=== PATIENT | male | born 1950 | race Caucasian/White ===

== ENCOUNTER 2020-12-17 06:50 | Day surgery (SDC) | payer OTHER ==
[2020-12-17] MEDS: LIDOCAINE 4% TOP SOLUTION ONE ×2 (07:30→07:52)
[2020-12-17] MEDS ORDERED: Ringers Lactate 1,000 ML IV ONE (07:37)
[2020-12-17] MEDS ORDERED: Phenylephrine HCl 10 MG/ML 1 ML VIAL ONE (07:49)
[2020-12-17] MEDS ORDERED: GLYCOPYRROLATE 0.2 MG/ML SYR ONE (07:50)
[2020-12-17] MEDS ORDERED: LIDOCAINE 1% MPF 30 ML VIAL ONE ×2 (07:50→08:28)
[2020-12-17] MEDS ORDERED: FENTANYL CITR 100 MCG/2 ML ONE (08:24)
[2020-12-17] MEDS ORDERED: propofoL 200 MG/20 ML VIAL IV ONE ×2 (08:24→09:03)
[2020-12-17] MEDS ORDERED: LIDOCAINE VISCOUS 2% SOLN 15 ML UDC ONE (08:28)
--- NOTE | 2020-12-17 09:57 | RAD REPORT ---
EXAM DESCRIPTION: RAD - FLUORO-GUIDE FOR BRONCH UPT1HR - 12/17/2020 9:37 am CLINICAL HISTORY: Device placement/bronchoscope placement FINDINGS: Three fluoroscopic spot image is submitted. A bronchoscope has been placed into the left l marvin. Fluoroscopy 273 seconds. Examination performed by Dr. Winston
[2020-12-17 10:21] VITALS: BP 123/72; TEMP 97.6; O2SAT 98
--- NOTE | 2020-12-17 10:48 | RAD REPORT ---
EXAM DESCRIPTION: Ricki Single View12/17/2020 10:32 am CLINICAL HISTORY: Device placement bronchoscopy IMPRESSION: A pneumothorax is not present status post bronchoscopy.
--- NOTE | 2020-12-25 09:53 | P.OP ---
Date of Service: 12/17/20 (Bronchoscopy [facility] [place] BX and BAL) Findings and Operative Technique PT is 70 yrs of age AW [place] mass with hoarseness. After obtaining informed consent from pat. 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 Normal Carini ,Normal R side of the lung. Mass noted protruding from the [place]. Multiple Biospies performed. PT tolerated procedure well. No complications. Post Op CXRY No pneumothorax
== END 2020-12-17 10:57 | disposition home or self-care (01) ==
LOC: PRE 06:50
PROVIDERS: ATTEND Internal Medicine Sleep Medicine
PROC: 0BJ08ZZ Inspection of Tracheobronchial Tree, Via Natural or Artificial Opening Endoscopic (ICD-10-PCS; principal; 2020-12-17 08:00)
DX: C34.92 Malignant neoplasm of unspecified part of left bronchus or lung (principal); G47.33 Obstructive sleep apnea (adult) (pediatric); Z87.891 Personal history of nicotine dependence; Z20.822 Contact with and (suspected) exposure to COVID-19
CPT/HCPCS: 87070; 88108; 88305 ×2; 87015; 87206; 87116; 87102; 71045; 76000; 31622; U0002; J2704 ×2; J2370; J3010; J7120

== ENCOUNTER 2021-12-06 15:08 | Emergency (ER) | payer OTHER ==
--- OUTSIDE RECORDS SUMMARY | 2021-12-06 15:11 | XMS REPORT | Continuity of Care Document ---
:1950 Author Organization [facility] t Address [address] [place] [address] Care Team Providers Name Role Phone PHAN Attending Clinician Unavailable MD Olegario CHISHOLM Attending Clinician Unavailable PHAN Admitting Clinician Unavailable MD Olegario CHISHOLM Admitting Clinician Unavailable Problems This patient has no known problems. Allergies, Adverse Reactions, Alerts This patient has no known allergies or adverse reactions. Medications This patient has no known medications. Procedures This patient has no known procedures. Encounters Start End Encounter Admission Attending Care Care Encounter Source Date/Time Date/Time Type Type Clinicians Facility Department ID 2021-08-10 2021-08-12 Inpatient [facility] [id number] [place] 00:00:00 00:00:00 [facility] 2021-08-06 2021-08-06 Outpatient [facility] [id number] [place] 00:00:00 00:00:00 [facility] 2021-08-06 2021-08-06 Outpatient [facility] [id number] [place] 00:00:00 00:00:00 ED[facility] [address] 2021-08-06 2021-08-06 Outpatient [facility] [id number] [place] 00:00:00 00:00:00 [facility] [address] 2021-08-06 2021-08-06 Outpatient [facility] [id number] [place] 00:00:00 00:00:00 ED[facility] [address] 2021-06-15 2021-06-15 Outpatient [facility] [id number] [place] 00:00:00 00:00:00 ED[facility] [address] 2021-06-11 2021-06-11 Outpatient [facility] [id number] [place] 00:00:00 00:00:00 ED[facility] [address] 2021-06-11 2021-06-11 Outpatient CHISHOLM, [facility] [id number] [place] 00:00:00 00:00:00 EDWARD [address] 2021-06-04 2021-06-04 Outpatient CHISHOLM, [facility] [id number] [place] 00:00:00 00:00:00 EDWARD [address] 2021-06-04 2021-06-04 Outpatient CHISHOLM, [facility] [id number] [place] 00:00:00 00:00:00 EDWARD [address] 2021-06-04 2021-06-04 Outpatient CHISHOLM, [facility] [id number] [place] 00:00:00 00:00:00 EDWARD [address] 2021-06-04 2021-06-04 Outpatient CHISHOLM, [facility] [id number] [place] 00:00:00 00:00:00 ED[facility] [address] Results Test Description Test Time Test Comments Results Result Comments Source SARS-CoV-2 (COVID-19) RNA [Presence] in Respiratory sp ecimen by 2021-08-06 20:36:38 MARY with probe detection Test Item Value Reference Range Interpretation Comme nts SARS-CoV-2 (COVID-19) RNA [Presence] in Respiratory Not detected No t-Detected specimen by MARY with probe detection (test code = 35489-5) Whether patient is employed in a healthcare setting (test code = 89875-3) Whether the patient has symptoms related to condition of interest (test code = 03631-4) Patient was hospitalized because of this condition (test code = 56792-1) Whether the patient was admitted to intensive care unit (ICU) for condition of interest (test code = 65195-3) Whether patient resides in a congregate care setting (test code = 87604-8) SARS-CoV-2 (COVID-19) RNA [Presence] in Respiratory specimen by MARY with probe [id number] 14:53:40 Test Item Value Reference Range Interpretation Comments SARS-CoV-2 (COVID-19) RNA Not detected Not-Detected [Presence] in Respiratory specimen by MARY with probe detection (test code = 57709-7) Whether patient is employed in a healthcare setting (test code = 59558-2) Whether the patient has symptoms related to condition of interest (test code = 10792-3) Patient was hospitalized because of this condition (test code = 02150-9) Whether the patient was admitted to intensive care unit (ICU) for condition of interest (test code = 92298-3) Whether patient resides in a congregate care setting (test code = 19948-1)
[2021-12-06] MEDS ORDERED: NA CHLORIDE 0.9% 1,000 ML ONE (17:19)
[2021-12-06 18:02] LABS: Absolute Lymphocytes (CBC) 0.5 K/uL (0.7-4.9); Hematocrit 40.5 % (39.6-49.0); Lymphocytes % 10.5 % (15.3-44.8); MPV 7.7 fL (7.6-11.3)
--- NOTE | 2021-12-06 18:03 | RAD REPORT ---
EXAM DESCRIPTION: Ricki Single View12/06/2021 5:53 pm CLINICAL HISTORY: Congestion COMPARISON: September 2021 FINDINGS: Left upper lobe opacity measures 8 centimeters. Left atelectasis is present Right lung appears clear. Heart is normal size IMPRESSION: Left lung opacity likely a combination of neoplasm and posterior did pneumonia Left atelectasis
[2021-12-06 18:05] LABS: Protime INR 1.01
[2021-12-06 18:16] LABS: Albumin 3.6 g/dL (3.4-5.0); Amylase 60 U/L (25-115); BUN Blood Urea Nitrogen 10 mg/dL (7-18); Bicarbonate 28 mmol/L (21-32); Bilirubin Direct 0.1 mg/dL (0-0.2); Bilirubin Total 0.4 mg/dL (0.2-1.0); Glucose Level 116 mg/dL (74-106); Lipase 93 U/L (73-393); Protein, Total 7.2 g/dL (6.4-8.2); Sodium Level 137 mmol/L (136-145)
[2021-12-06 18:17] LABS: Urine Blood Negative (Negative); Urine Glucose Negative (Negative); Urine Protein Negative (Negative); Urine pH 5.5 (5.0-7.0)
--- NOTE | 2021-12-06 18:19 | ER ---
Nurse's Notes [facility] Name: Jason Burch Age: 71 yrs Sex: Male : 1950 Arrival Date: 12/06/2021 Time: 15:09 Bed 5 Private MD: Teddy Araujo T Diagnosis: Other pneumonia, unspecified organism Presentation: 12/06 15:29 Chief complaint: Patient states: Home blood pressure was 99/67, 70/48. Coronavirus ww screen: Vaccine status: Patient reports being unvaccinated. Client denies travel out of the [place] in the last 14 days. Ebola Screen: Patient negative for fever greater than or equal to 101.5 degrees Fahrenheit, and additional compatible Ebola Virus Disease symptoms Patient denies exposure to infectious person. Patient denies travel to an Ebola-affected area in the 21 days before illness onset. Initial Sepsis Screen: Does the patient meet any 2 criteria? No. Patient's initial sepsis screen is negative. Does the patient have a suspected source of infection? No. Patient's initial sepsis screen is negative. Risk Assessment: Do you want to hurt yourself or someone else? Patient reports no desire to harm self or others. Onset of symptoms was December 06, 2021. 15:29 Method Of Arrival: Wheelchair ww 15:29 Acuity: SOL 4 ww Triage Assessment: 15:30 General: Appears in no apparent distress. Behavior is calm, cooperative, appropriate ww for age. Pain: Denies pain. EENT: No deficits noted. No signs and/or symptoms were reported regarding the EENT system. Neuro: No deficits noted. Level of Consciousness is awake, alert, obeys commands, Oriented to person, place, time, situation. Cardiovascular: No deficits noted. Reports since hypotension. Respiratory: No deficits noted. Airway is patent Respiratory effort is even, unlabored, Respiratory pattern is regular, symmetrical. GI: No deficits noted. No signs and/or symptoms were reported involving the gastrointestinal system. : No deficits noted. No signs and/or symptoms were reported regarding the genitourinary system. Derm: No deficits noted. No signs and/or symptoms reported regarding the dermatologic system. Skin is intact. Musculoskeletal: No deficits noted. No signs and/or symptoms reported regarding the musculoskeletal system. Historical: - Allergies: 15:30 No Known Allergies; ww - PMHx: 15:30 Hypertensive disorder; small cell lung cancer; ww - Immunization history:: Client reports having NOT received the Covid vaccine. - Social history:: Smoking status: Patient/guardian denies using tobacco, Patient/guardian denies using alcohol, street drugs, The patient lives with family. - Family history:: not pertinent. Screenin:39 Abuse screen: Denies threats or abuse. Nutritional screening: No deficits noted. tw2 Tuberculosis screening: No symptoms or risk factors identified. Fall Risk Secondary diagnosis (15 points) impaired mobility. Assessment: 17:59 General: Appears Behavior is calm, cooperative. Pain: Denies pain. Cardiovascular: haddad Reports low blood preassure. Vital Signs: 15:29 BP 91 / 61; Pulse 95; Resp 18; Temp 97.3; Pulse Ox 97% on R/A; Weight 81.19 kg; Height ww 5 ft. 10 in. (177.80 cm); 17:59 BP 140 / 86; Pulse 71; Resp 18; Pulse Ox 99% on R/A; haddad 15:29 Body Mass Index 25.68 (81.19 kg, 177.80 cm) ww ED Course: 15:09 Patient arrived in ED. am2 15:10 Teddy Araujo MD is Private Physician. am2 15:30 Triage completed. ww 15:30 Arm band placed on left wrist. ww 16:04 Nadira Mccormick MD is Attending Physician. ma2 17:53 Chest Single View XRAY In Process Unspecified. EDMS 17:59 Patient has correct armband on for positive identification. Bed in low position. haddad 17:59 EKG done, by ED staff, reviewed by Nadira Mccormick MD. 3 17:59 No provider procedures requiring assistance completed. haddad 17:59 Inserted saline lock: 20 gauge in right antecubital area, using aseptic technique. haddad 18:51 IV discontinued, intact, Pressure dressing applied. haddad Administered Medications: 17:40 Drug: NS 0.9% 1000 ml Route: IV; Rate: 1 bolus; Site: right antecubital; ss 18:34 Drug: AZITHromycin 500 mg Route: PO; haddad 18:34 Follow up: Response: No adverse reaction haddad Outcome: 18:19 Discharge ordered by . ma2 18:51 Discharged to home haddad 18:51 Condition: good 18:51 Discharge instructions given to patient, Prescriptions given X 1. 18:51 Patient left the ED. haddad Signatures: Dispatcher [employer] EDMS Terri Ngo, RN KUNAL Brooklyn Quach RN RN [facility] iWlma hTomas am Kellie Ren [facility] Nadira Mccormick MD MD va2 Sarahi Michaud RN RN Vania Martino RN RN ha
--- NOTE | 2021-12-06 18:20 | EDPHYS ---
Physician Documentation [facility] Name: Jason Burch Age: 71 yrs Sex: Male : 1950 Arrival Date: 12/06/2021 Time: 15:09 Bed 5 Private MD: Teddy Araujo T ED Physician Nadira Mccormick HPI: 12/06 16:58 This 71 yrs old Unknown Male presents to ER via Wheelchair with complaints of Blood ma2 Pressure Problem - 70/48 \\T\\ home. 16:58 Onset: The symptoms/episode began/occurred gradually, 1 day(s) ago. Associated signs ma2 and symptoms: Pertinent negatives: diaphoresis, fever, loss of consciousness, numbness in extremities, visual changes. Severity of symptoms: At their worst the symptoms were in the emergency department the symptoms. Patient has small cell lung cancer, completed chemotherapy and radiation therapy 3 months ago, no chemotherapy at this time. He is here because he had reading of low blood pressure at home of 70/48, he checked his blood pressure every morning, patient also take blood pressure medicine which he took this morning as well before he checked his blood pressure. Patient said that there is no symptoms at this time or this morning, he denies cough shortness of breath fever or any new symptoms. Patient thinks blood pressure is because he has not been eating or drinking water over the last 2 weeks,. Historical: - Allergies: 15:30 No Known Allergies; ww - PMHx: 15:30 Hypertensive disorder; small cell lung cancer; ww - Immunization history:: Client reports having NOT received the Covid vaccine. - Social history:: Smoking status: Patient/guardian denies using tobacco, Patient/guardian denies using alcohol, street drugs, The patient lives with family. - Family history:: not pertinent. ROS: 16:58 Constitutional: Negative for fever, chills, and weight loss. ma2 16:58 All other systems are negative. Exam: 16:58 Constitutional: This is a well developed, well nourished patient who is awake, alert, ma2 and in no acute distress. Head/Face: Normocephalic, atraumatic. Eyes: Pupils equal round and reactive to light, extra-ocular motions intact. Lids and lashes normal. Conjunctiva and sclera are non-icteric and not injected. Cornea within normal limits. Periorbital areas with no swelling, redness, or edema. ENT: Nares patent. No nasal discharge, no septal abnormalities noted. Tympanic membranes are normal and external auditory canals are clear. Oropharynx with no redness, swelling, or masses, exudates, or evidence of obstruction, uvula midline. Mucous membranes moist. Neck: Trachea midline, no thyromegaly or masses palpated, and no cervical lymphadenopathy. Supple, full range of motion without nuchal rigidity, or vertebral point tenderness. No Meningismus. Chest/axilla: Normal chest wall appearance and motion. Nontender with no deformity. No lesions are appreciated. Cardiovascular: Regular rate and rhythm with a normal S1 and S2. No gallops, murmurs, or rubs. Normal PMI, no JVD. No pulse deficits. Respiratory: Lungs have equal breath sounds bilaterally, clear to auscultation and percussion. No rales, rhonchi or wheezes noted. No increased work of breathing, no retractions or nasal flaring. Abdomen/GI: Soft, non-tender, with normal bowel sounds. No distension or tympany. No guarding or rebound. No evidence of tenderness throughout. Skin: Warm, dry with normal turgor. Normal color with no rashes, no lesions, and no evidence of cellulitis. MS/ Extremity: Pulses equal, no cyanosis. Neurovascular intact. Full, normal range of motion. Neuro: Awake and alert, GCS 15, oriented to person, place, time, and situation. Cranial nerves II-XII grossly intact. Motor strength 5/5 in all extremities. Sensory grossly intact. Cerebellar exam normal. Normal gait. Vital Signs: 15:29 BP 91 / 61; Pulse 95; Resp 18; Temp 97.3; Pulse Ox 97% on R/A; Weight 81.19 kg; Height ww 5 ft. 10 in. (177.80 cm); 17:59 BP 140 / 86; Pulse 71; Resp 18; Pulse Ox 99% on R/A; haddad 15:29 Body Mass Index 25.68 (81.19 kg, 177.80 cm) ww MDM: 16:04 Patient medically screened. ma2 16:58 Differential diagnosis: Anemia asthma, Bronchitis pneumonia, reactive airway disease. ma2 18:18 Data reviewed: vital signs, nurses notes, EMS record, alf records. Counseling: [email or web address] I had a detailed discussion with the patient and/or guardian regarding: the historical points, exam findings, and any diagnostic results supporting the discharge/admit diagnosis, the presence of at least one elevated blood pressure reading (>120/80) during this emergency department visit, the need for outpatient follow up. 12/06 16:50 Order name: Amylase, Serum; Complete Time: 18:26 12/06 16:50 Order name: Basic Metabolic Panel; Complete Time: 18:26 12/06 16:50 Order name: Blood Culture Adult (2) 12/06 16:50 Order name: CBC with Diff; Complete Time: 18:17 12/06 16:50 Order name: CPK; Complete Time: 18:26 12/06 16:50 Order name: Ckmb; Complete Time: 18:26 12/06 16:50 Order name: LFT's; Complete Time: 18:26 12/06 16:50 Order name: Lactate; Complete Time: 18:26 12/06 16:50 Order name: Lipase; Complete Time: 18:26 12/06 16:50 Order name: Procalcitonin 12/06 16:50 Order name: Protime (+inr); Complete Time: 18:17 12/06 16:50 Order name: Ptt, Activated; Complete Time: 18:17 12/06 16:50 Order name: Troponin (emerg Dept Use Only); Complete Time: 18:26 12/06 16:50 Order name: Urine Microscopic Only 12/06 16:50 Order name: Chest Single View XRAY; Complete Time: 18:17 12/06 16:50 Order name: Cardiac monitoring; Complete Time: 17:59 12/06 16:50 Order name: EKG - Nurse/Tech; Complete Time: 17:59 12/06 16:50 Order name: IV Saline Lock - Large Bore; Complete Time: 17:40 12/06 16:50 Order name: Labs collected and sent; Complete Time: 17:59 12/06 16:50 Order name: O2 Per Protocol; Complete Time: 17:40 12/06 16:50 Order name: O2 Sat Monitoring; Complete Time: 18:00 /09 16:50 Order name: Urine Dipstick-Ancillary (obtain specimen); Complete Time: 18:00 il2 12/06 16:50 Order name: SARS-COV-2 RT PCR (Document "Date of Onset" if Symptomatic) il2 12/06 18:16 Order name: Urine Dipstick-Ancillary EDMS 12/06 18:45 Order name: Urine Culture EDMS Administered Medications: 17:40 Drug: NS 0.9% 1000 ml Route: IV; Rate: 1 bolus; Site: right antecubital; 18:34 Drug: AZITHromycin 500 mg Route: PO; haddad 18:34 Follow up: Response: No adverse reaction haddad Disposition Summary: 12/06/21 18:19 Discharge Ordered Location: Home ma2 Condition: Stable ma2 Diagnosis - Other pneumonia, unspecified organism ma2 Followup: ma2 - With: Private Physician - When: Tomorrow - Reason: Continuance of care Discharge Instructions: - Discharge Summary Sheet il2 - Community-Acquired Pneumonia, Adult [facility] Forms: - Medication Reconciliation Form il2 - Thank You Letter ma2 - Antibiotic Education ma2 - Prescription Opioid Use il2 Prescriptions: - Zithromax Z-Robbie 250 mg Oral Tablet - take 1 tablet by ORAL route as directed for 5 days Day 1 - take two (2) tablets ma2 one time. Day 2, 3, 4 , 5 take one (1) tablet once daily.; 6 tablet; Refills: 0, Product Selection Permitted Signatures: Dispatcher [employer] EDVA Terri Ngo RN RN Nadira Mccormick MD MD [facility] Sarahi Michaud RN RN Vania Martino RN RN haddad Corrections: (The following items were deleted from the chart) 18:02 16:50 Accucheck ordered. [facility]
[2021-12-06 18:23] LABS: ALT/SGPT 29 U/L (12-78); Alkaline Phosphatase 76 U/L (45-117); CKMB Creatine Kinase MB 1.1 ng/mL (1.0-3.6); Creatine Phosphokinase 83 U/L (39-308); Troponin (Emerg Dept Use Only) < 0.02 ng/mL (0.0-0.045)
[2021-12-06 18:25] LABS: AST/SGOT 31 U/L (15-37); Potassium 4.1 mmol/L (3.5-5.1)
[2021-12-06] MEDS ORDERED: AZITHROMYCIN 250 MG TAB ONE (18:34)
[2021-12-06 18:43] LABS: Urine Bacteria 20-50 /HPF (NONE SEEN); Urine Mucus 1+ /HPF (NONE SEEN); Urine RBC <5 /HPF (NONE SEEN)
[2021-12-06 18:56] VITALS: TEMP 97.3
[2021-12-06 18:58] VITALS: BP 140/86; O2SAT 99
== END 2021-12-06 18:51 | disposition home or self-care (01) ==
LOC: ER 15:08
DX: J18.8 Other pneumonia, unspecified organism (principal); Z20.822 Contact with and (suspected) exposure to COVID-19; I10 Essential (primary) hypertension; C34.90 Malignant neoplasm of unspecified part of unspecified bronchus or lung
CPT/HCPCS: 93005; 87040 ×2; 87088; 85025; 87086; 80048; 36415; 82150; 82550; 85610; 80076; 83605; 85730; 84484; 82553; 83690; 84145; 71045; 99284; U0003; J7030; 81003; 81015

== ENCOUNTER 2022-03-03 08:01 | Day surgery (SDC) | payer OTHER ==
[2022-03-03 08:45] LABS: Absolute Lymphocytes (CBC) 0.5 K/uL (0.7-4.9); Hematocrit 38.4 % (39.6-49.0); Lymphocytes % 13.3 % (15.3-44.8); MPV 8.3 fL (7.6-11.3); RBC Red Blood Cell Count 3.85 M/uL (4.33-5.43)
[2022-03-03] MEDS ORDERED: MIDAZOLAM HCL 2 MG/2 ML INJ ONE (08:51)
[2022-03-03] MEDS ORDERED: NALOXONE 0.4 MG/ML VIAL ONE (08:51)
[2022-03-03] MEDS ORDERED: FENTANYL CITR 100 MCG/2 ML ONE (08:52)
[2022-03-03] MEDS ORDERED: Ringers Lactate 1,000 ML IV ONE (08:52)
[2022-03-03] MEDS ORDERED: FLUMAZENIL 0.1 MG/ML (5 mL VIAL) IV ONE (09:01)
[2022-03-03] MEDS ORDERED: NA CHLORIDE 0.9% 1,000 ML ONE (09:09)
[2022-03-03 09:50] LABS: Anisocytosis SLIGHT; Blood Morphology Comment NOTED (NOT SEEN); Hypochromasia 1+; Platelet Estimate DECR; Platelets, Giant PRESENT
--- NOTE | 2022-03-03 11:38 | RAD REPORT ---
EXAM DESCRIPTION: CT - Bone Biopsy Deep - 03/03/2022 10:55 am CLINICAL HISTORY: right shoulder mass COMPARISON: No comparisons FINDINGS: Preoperative diagnosis: Right proximal humerus lesion Post operative diagnosis: Same Conscious Sedation: 2 milligrams of Versed, 5- mcg Fentanyl. 30 minutes of [id number] time. Patient was continuously monitored by nursing staff. Contrast used: NONE Estimated blood loss: less than 5 mL Image Guidance: CT-guided Specimens: 2 x 13 gauge core samples of the hypermetabolic process in the right humeral head were obt ained. Samples were given to pathology for analysis. The patient tolerated the procedure without immediate c omplication and transferred to the recovery room in stable condition. IMPRESSION: 1. Technically successful CT-guided core biopsy of the hypermetabolic process in the rig ht proximal humerus. 2.Conscious sedation was utilized. 3. No immediate complications. All CT scans are performed using dose optimization technique as appropriate and may include automated exposure control or mA/KV adjustment according to patient size.
[2022-03-03 11:40] VITALS: BMI 24.3
[2022-03-03 11:49] VITALS: BP 140/96; TEMP 97.5; O2SAT 100
== END 2022-03-03 11:30 | disposition home or self-care (01) ==
LOC: DS 08:01
PROVIDERS: ATTEND Internal Medicine Medical Oncology
DX: C79.51 Secondary malignant neoplasm of bone (principal); C77.1 Secondary and unspecified malignant neoplasm of intrathoracic lymph nodes; D69.6 Thrombocytopenia, unspecified; D64.9 Anemia, unspecified; D72.819 Decreased white blood cell count, unspecified
CPT/HCPCS: 85025; 36415; 88305; 20225; J2250; J3010; J7120; J7030; J2310

== ENCOUNTER 2022-08-09 10:38 | Emergency (ER) | payer OTHER ==
--- OUTSIDE RECORDS SUMMARY | 2022-08-09 10:46 | XMS REPORT | Continuity of Care Document ---
:1950 Author Organization [facility] t Address [address] [place] [address] Care Team Providers Name Role Phone Teddy Araujo Larry Primary Care Physician Fellow, Pulmonary Attending Clinician Unavailable Daniel Rodriguez MD Attending Clinician Provider Charla CASANOVA Attending Clinician Rolly Stephens MDHMaty Attending Clinician Willow Malloy RN Attending Clinician Unavailable Ange Livingston MD Attending Clinician Mattie Hutchison CRNA Attending Clinician MD ROLLY STEPHENSH. 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 Added automatic ally from request for surgery [id number] Abnormal Abnormal Disease Active Overview: De thmanjit PET of PET of 06-[address] left lung left lung 00:00: g of this H ospita 00 note l might be different from the original. Added automatic ally from request for surgery [id number] No known No known Disease Unive rs active active ity of problems problems [facility] Allergies, Adverse Reactions, Alerts This patient has no known allergies or adverse reactions. Social History Social Habit Start Date Stop Date Quantity Comments Source History of tobacco Cigarette Smoker University of use [facility] Tobacco use and 2022-07-22 2022-07-22 Smokeless Universit y of exposure 00:00:00 00:00:00 tobacco non-user [facility] Alcohol intake 2021-08-12 2021-08-12 Current drinker [facility] 00:00:00 00:00:00 of alcohol [facility] (finding) Cigarettes smoked 2021-06-04 2021-06-[address] current (pack per 00:00:00 00:00:00 [facility] l day) - Reported Cigarette 2021-06-04 2021-06-04 [facility] pack-years 00:00:00 00:00:00 Hospital Sex Assigned At [birth year] [facility] 00:00:00 00:00:00 Hospital Smoking Status Start Date Stop Date Source Ex-smoker 2022-07-22 00:00:00 2022-07-22 00:00:00 [facility] Medications Ordered Filled Start Stop Current Ordering Indication Dosage Frequency Signature Comments Components Source Medication Medication Date Date Medication? Clinician (SIG) Name Name vitamin C Yes 1000mg Take 1,000 Univers with ibeth 8-25 mg by ity of hips 1,000 13:21: mouth. [place] mg tablet [address] [place] [address] VITAMIN E Yes 180mg Take 180 Uni vers ACETATE 8-25 mg by ity of ORAL 13:21: mouth. [address] POTASSIUM Yes Take by Unive rs CITRATE 8-25 mouth. ity of ORAL 13:21: [address] sucralfate Yes 1g Take 1 g Uni vers 1 gram 8-25 by mouth. ity of tablet 13:21: [address] XARELTO 20 Yes 20mg Take 20 mg U nivers mg tablet 8-18 by mouth ity of 00:00: every [place] [address] morning. [facility] carvediloL Yes 12.5mg Take 12.5 Univers 12.5 mg 6-15 mg by ity of tablet 00:00: mouth in [place] 00 the Medical morning Branch and 12.5 mg in the evening. gabapentin Yes 600mg Take 600 Un sd 600 mg 6-15 mg by ity of tablet 00:00: mouth in [place] 00 the Medical morning Branch and 600 mg in the evening. HYDROcodone Yes 1{tbl} Take 1 Un sd -acetaminop 6-09 tablet by ity of hen 5-325 00:00: mouth [place] mg tablet 00 every 8 Medical (eight) Branch hours as needed. carvediloL Yes 12.5mg Q.5D Take 12.5 Methodi (COREG) 9-[address] 12.5 MG 11:51: mouth 2 Hospita tablet 50 (two) l times a day with meals. valsartan Yes 80mg QD Take 80 mg Me thodi (DIOVAN) 80 9-[address] MG tablet 11:51: daily. Hospit a 50 l POTASSIUM 0 Yes QD Take by Metho di CITRATE 9-[address] ORAL 11:51: daily. Hospita 50 l ascorbic 0 Yes 1000mg QD Take 1,000 M ethodi acid, 9-[address] vitamin C, 11:51: mouth Hospit a (vitamin C) 50 daily. l 1000 MG tablet vitamin E Yes 180mg QD Take 180 Met hodi acetate 9-[address] (VITAMIN E 11:51: mouth Hospit a ORAL) 50 daily. l sucralfate Yes 1g Q.25D Take 1 g Me thodi (CARAFATE) 9-[address] 1 gram 11:51: (four) Hospita tablet 50 times a l day. Vital Signs Vital Name Observation Time Observation Value Comments Source Systolic blood 2022-07-22 18:22:00 118 mm[Hg] [facility] Diastolic blood 2022-07-22 18:22:00 79 mm[Hg] Unive [facility] Heart rate 2022-07-22 18:22:00 96 /min [facility] Body temperature 2022-07-22 18:22:00 36.89 [facility] Respiratory rate 2022-07-22 18:22:00 18 /min [facility] Body height 2022-07-22 18:22:00 177.8 cm [facility] Body weight 2022-07-22 18:22:00 73.483 kg [facility] BMI 2022-07-22 18:22:00 23.24 kg/m2 [facility] Oxygen saturation in 2022-07-22 18:22:00 95 /min [facility] Arterial blood by [facility] Pulse oximetry Branch Systolic blood 2021-08-12 12:28:57 131 mm[Hg] [facility] pressure Diastolic blood 2021-08-12 12:28:57 84 mm[Hg] [facility] pressure Body temperature 2021-08-12 12:28:57 37.17 [place] [facility] Oxygen saturation in 2021-08-12 12:28:57 97 /min [facility] Arterial blood by Pulse oximetry Heart rate 2021-08-12 09:07:30 84 /min [facility] Respiratory rate 2021-08-12 09:07:30 20 /min [facility] Body weight 2021-08-12 09:07:30 79.652 kg [facility] BMI 2021-08-12 09:07:30 25.20 kg/m2 [facility] Body height 2021-08-11 01:21:57 177.8 cm [facility] Procedures Procedure Date / Time Performing Clinician Source Performed PET CT SKULL BASE TO MID 2021-10-15 00:00:00 Yazmin Hurt [facility] THIGH XR CHEST 1 VW PORTABLE 2021-08-12 13:40:00 Alvina Head [facility] XR CHEST 1 VW PORTABLE 2021-08-12 11:14:00 Sarmad Lawton [facility] Owusstephanie COVID-19 ANTI-SPIKE IGG 2021-08-12 09:48:00 Teddy Lopez [facility] ANTIBODY TITER Josh COVID-19 SEROLOGY PATIENT 2021-08-12 09:48:00 Teddy Lopez [facility] SURVEILLANCE Josh XR CHEST 1 VW PORTABLE 2021-08-11 18:15:00 Yaa Sanchez [facility] XR CHEST 1 VW PORTABLE 2021-08-11 11:24:00 [facility] XR CHEST 1 VW PORTABLE 2021-08-11 00:37:58 [facility] OR TUBE THORACOSTOMY 2021-08-10 23:56:01 [facility] INCLUDES WATER SEAL [facility] XR CHEST 1 VW PORTABLE 2021-08-10 21:58:52 [facility] SURGICAL PATHOLOGY REQUEST 2021-08-10 19:48:00 Rolly Stephens [facility] XR CHEST 1 VW PORTABLE 2021-08-10 19:32:00 [facility] OR AN ELECTIVE 2021-08-10 17:39:42 Roseann Orozco [facility] ospital ENDOTRACHEAL AIRWAY CYTOLOGY 2021-08-10 17:35:00 Rolly Stephens [facility] (NON-GYNECOLOGICAL) REQUEST BRONCHOSCOPY, USING 2021-08-10 17:17:00 Rolly Stephens [facility] ELECTROMAGNETIC NAVIGATION ECG 12-LEAD 2021-08-10 15:42:08 Rolly Stephens [facility] Plan of Care Planned Activity Planned Date Details Comments Source Future Scheduled 2022-08-08 HEPATITIS B VACCINES Met [facility] Test 11:02:03 (1 of 3 - 3-dose series) [code = HEPATITIS B VACCINES (1 of 3 - 3-dose series)] Future Scheduled 2022-08-08 COVID-19 VACCINE (#1) [facility] Test 11:02:03 [code = COVID-19 VACCINE (#1)] Future Scheduled 2022-08-08 65+ PNEUMOCOCCAL [facility] Test 11:02:03 VACCINE (1 - PCV) [code = 65+ PNEUMOCOCCAL VACCINE (1 - PCV)] Future Scheduled 2022-08-08 Hepatitis C screening [facility] Test 11:02:03 (procedure) [code = 510677746] Future Scheduled 2022-08-08 COLONOSCOPY SCREENING [facility] Test 11:02:03 [code = COLONOSCOPY SCREENING] Future Scheduled 2022-08-08 SHINGLES VACCINES (1 Met [facility] [place] [facility] Test 11:02:03 of 2) [code = SHINGLES VACCINES (1 of 2)] Future Scheduled 2022-08-08 INFLUENZA VACCINE [facility] Test 11:02:03 [code = INFLUENZA VACCINE] Encounters Start End Encounter Admission Attending Care Care Encounter Source Date/Time Date/Time Type Type Clinicians Facility Department ID 2022-07-22 2022-07-22 Office Fellow, Pulmonary UNIVERSIT 1.2.[id number] [facility] 14:00:00 15:00:00 Visit JenniferDaniel [facility] 350.1.13.10 ity [facility] [place] 4[place] [id number] [facility] 084 Branch 2021-11-02 2021-11-02 Orders Provider, 1.2.840.1 [id number] Methodi 00:00:00 00:00:00 Only Historical 02227.1.1 842 s t 3.430.2.7 Hospit a .3.049758 l .8 2021-08-10 2021-08-12 [facility], 1.2.840.1 [id number] Methodi 09:46:00 11:51:00 Encounter Rolly Melvin 00175.1.[address] 3.430.2.7 Hospit a .3.131194 l .8 2021-08-10 2021-08-12 [facility] [id number] [place] [address] 00:00:00 00:00:[address] 2021-08-11 2021-08-11 Orders Malloy, 1.2.840.1 [id number] Methodi 00:00:00 00:00:00 Only [place]ow [address]87.1.[address] 3.430.2.7 Hospit a .3.023423 l .8 2021-08-10 2021-08-10 [facility], 1.2.840.1 [id number] Methodi 12:25:00 14:45:00 [address] [facility] [address] 3.430.2.7 Hospit a .3.346049 l .8 2021-08-10 2021-08-10 Anesthesia Ange Livingston 1.2.840.1 [id number] Methodi 12:17:00 14:02:00 Event Mattie Hutchison 02048.1.[address] 3.430.2.7 Hospit a .3.563089 l .8 2021-08-10 2021-08-10 Travel 1.2.840.1 1.2.174.344 [id number] Methodi 00:00:00 00:00:[address] 3.430.2.7 0.2.7.3.698 Ho spita .3.934644 084.8 l .8 2021-08-06 2021-08-06 Outpatient [facility], [facility] [id number] [place] 00:00:00 00:00:00 EDWARD 957 Method i 2021-08-06 2021-08-06 Outpatient STEPHENS, [facility] [id number] [place] 00:00:00 00:00:00 EDWARD 246 Method i 2021-08-06 2021-08-06 Outpatient [facility], [facility] [id number] [place] 00:00:00 00:00:00 EDWARD 659 Method i 2021-08-06 2021-08-06 Outpatient [facility], [facility] [id number] [place] 00:00:00 00:00:00 EDWARD 221 Method i 2021-06-15 2021-06-15 Outpatient [facility] 895 [id number] [place] 00:00:00 00:00:00 EDWARD 137 Method i 2021-06-11 2021-06-11 Outpatient [facility], [facility] [id number] [place] 00:00:00 00:00:00 EDJERRY 613 Method i 2021-06-11 2021-06-11 Outpatient [facility], [facility] [id number] [place] 00:00:00 00:00:00 EDJERRY 418 Method i 2021-06-04 2021-06-04 Outpatient STEPHENS, [facility] [id number] [place] 00:00:00 00:00:00 EDWARD [address] 2021-06-04 2021-06-04 Outpatient [facility], [facility] [id number] [place] 00:00:00 00:00:00 EDWARD [address] 2021-06-04 2021-06-04 Outpatient STE[facility]ENS, [facility] [id number] [place] 00:00:00 00:00:00 EDWARD [address] 2021-06-04 2021-06-04 Outpatient STEPHENS, [facility] [id number] 011 [place] 00:00:00 00:00:00 EDWARD [address] Results Test Description Test Time Test Comments Results Result Comments Source Surgical pathology request 2021-08-13 19:44:14 Test Item Value Reference Range Interpretation Comme nts Case number (test code = [id number]) [id number] Surgical pathology report (test code = See link below for PDF Lab R eport 2255) Result status (test code = 5839382) This is Final Report for [id number] [facility] [id number] 16:00:08 Test Item Value Reference Range Interpretation Comments Case number (test code = [id number]) Cytology See link below for (non-gynecological) PDF Lab Report report (test code = 1178) Result status (test code This is Final Report = [id number]) for [id number] [facility] 12 [id number] 16:01:59 Test Item Value Reference Range Interpretation Comments Ventricular rate (test code = 253) Atrial rate (test code = 255) OR interval (test code = 266) QRSD interval (test code = 260) QT interval (test code = 264) QTC interval (test code = 265) P axis 1 (test code = 267) QRS axis 1 (test code = 268) T wave axis (test code = 270) EKG impression (test Normal sinus code = 273) rhythm-Nonspecific T wave abnormality-Abnormal ECG-No previous ECGs available-Electronica lly Signed By Brandon Martinez MD ([id number]) on 08/10/2021 11:01:56 AM [facility]-CoV-2 (COVID-19) RNA [Presence] in Respiratory specimen by MARY with probe [id number] 20:36:38 Test Item Value Reference Range Interpretation Comments SARS-CoV-2 (COVID-19) RNA Not detected Not-Detected [Presence] in Respiratory specimen by MARY with probe detection (test code = 94087-2) Whether patient is employed in a healthcare setting (test code = 44250-1) Whether the patient has symptoms related to condition of interest (test code = 61196-4) Patient was hospitalized because of this condition (test code = 37521-6) Whether the patient was admitted to intensive care unit (ICU) for condition of interest (test code = 59831-9) Whether patient resides in a congregate care setting (test code = 32241-7) SARS-CoV-2 (COVID-19) RNA [Presence] in Respiratory specimen by MARY with probe [id number] 14:53:40 Test Item Value Reference Range Interpretation Comments SARS-CoV-2 (COVID-19) RNA Not detected Not-Detected [Presence] in Respiratory specimen by MARY with probe detection (test code = 61439-5) Whether patient is employed in a healthcare setting (test code = 11881-5) Whether the patient has symptoms related to condition of interest (test code = 63232-9) Patient was hospitalized because of this condition (test code = 43940-4) Whether the patient was admitted to intensive care unit (ICU) for condition of interest (test code = 80487-8) Whether patient resides in a congregate care setting (test code = 30936-8)
[2022-08-09] MEDS ORDERED: TETANUS & DIPHTHERIA TOX,ADULT 0.5 ML VIAL ONE (11:12)
[2022-08-09] MEDS ORDERED: LIDOCAINE 1% MPF 5 ML VIAL ONE ×2 (11:12→13:17)
[2022-08-09] MEDS ORDERED: MUPIROCIN 2% OINT 22GM TUBE TOP ONE (11:19)
[2022-08-09] MEDS ORDERED: ACETAMINOPHEN 500 MG TAB ONE (11:57)
--- NOTE | 2022-08-09 12:30 | RAD REPORT ---
EXAM DESCRIPTION: CT - CTHCSPWOC - 08/09/2022 11:34 am CLINICAL HISTORY: Trauma, head and neck injury. fall COMPARISON: Ct Skull/Thigh dated 01/28/2022 TECHNIQUE: Axial 5 mm thick images of the head were obtained. Axial 2 mm thick images of the cervical spine were obtained with sagittal and coronal reconstruction images generated and reviewed. All CT scans are performed using dose optimization technique as appropriate and may include automated exposure control or mA/KV adjustment according to patient size. FINDINGS: CT HEAD WITHOUT CONTRAST: No acute hemorrhage, hydrocephalus or extra-axial collection is identified.Mild generalized brain atr ophy is present with moderate periventricular and deep white matter chronic microvascular ischemic ch anges.No areas of brain edema or midline shift. Mild high density fluid is seen in both maxillary antra which may be related mucoid material or blood product.The calvarium is intact. CT CERVICAL SPINE WITHOUT CONTRAST: No fracture or subluxation.Moderate multilevel cervical degenerative changes are present.No preverteb ral soft tissues swelling is identified. IMPRESSION: No acute intracranial or cervical spine findings. Moderate multilevel cervical degenerative changes.
--- NOTE | 2022-08-09 13:43 | ER ---
Nurse's Notes [facility] Name: Jason Burch Age: 71 yrs Sex: Male : 1950 Arrival Date: 08/09/2022 Time: 10:43 Bed 4 Private MD: Diagnosis: Fall on same level, unspecified;Laceration without foreign body of other part of head-left brow, left cheek Presentation: 08/09 11:03 Chief complaint: Patient states: fell while leaving the cancer center, laceration to iw left side of forehead , denies LOC, has been falling more often and is currently on chemo. 11:03 Acuity: SOL 3 iw 11:03 Method Of Arrival: Wheelchair iw 11:03 Care prior to arrival: None. j9 11:03 Mechanism of Injury: Fall from standing position. Trauma event details: Injury jg9 occurred: at home. 11:03 Coronavirus screen: Vaccine status: Patient reports being unvaccinated. Ebola Screen: j9 Patient negative for fever greater than or equal to 101.5 degrees Fahrenheit, and additional compatible Ebola Virus Disease symptoms Patient denies exposure to infectious person. Patient denies travel to an Ebola-affected area in the 21 days before illness onset. Initial Sepsis Screen: Does the patient meet any 2 criteria? No. Patient's initial sepsis screen is negative. Does the patient have a suspected source of infection? No. Patient's initial sepsis screen is negative. Risk Assessment: Do you want to hurt yourself or someone else? Patient reports no desire to harm self or others. 11:03 Onset of symptoms was August 09, 2022. jg9 Triage Assessment: 11:05 General: Appears in no apparent distress. Behavior is calm, cooperative. Pain: jg9 Complains of pain in forehead. Trauma Activation: Not Applicable Physician: ED Physician; Name: ; Notified At: ; Arrived At: Physician: General Surgeon; Name: ; Notified At: ; Arrived At: Physician: Radiology; Name: ; Notified At: ; Arrived At: Physician: Respiratory; Name: ; Notified At: ; Arrived At: Physician: Lab; Name: ; Notified At: ; Arrived At: Historical: - Allergies: 12:01 No Known Allergies; jg9 - PMHx: 12:01 Hypertensive disorder; small cell lung cancer; jg9 - Immunization history: Last tetanus immunization: unknown. - Social history:: Smoking status: Patient/guardian denies using tobacco, the patient reports quitting approximately 11 years ago. - Family history:: not pertinent. Screenin:05 Fall Risk Fall in past 12 months (25 points). jg9 11:53 Abuse screen: Denies threats or abuse. Denies injuries from another. Tuberculosis jg9 screening: No symptoms or risk factors identified. 12:01 Nutritional screening: No deficits noted. jg9 Primary Survey: 11:05 NO uncontrolled hemorrhage observed. A: The client is awake and alert. The airway is jg9 patent. Breathing/Chest: Spontaneous respiratory effort, equal unlabored respirations, breath sounds clear bilaterally, regular pattern, symmetrical chest rise and fall. Circulation: No external hemorrhage present. Regular and strong central pulse, skin warm/dry/normal color. Disability Client is alert. Exposure/Environment: A warming method has been applied: A warm blanket has been provided to the patient. 12:02 Reassessment Alertness and Airway: Awake and alert. The airway is patent. Breathing: jg9 Spontaneous respiratory effort, equal unlabored respirations, breath sounds clear bilaterally, regular pattern with symmetrical chest rise and fall. Circulation: No external hemorrhage noted. Regular and strong central pulse, skin warm/dry/normal color. Disability: Alert. Secondary Survey: 12:00 HEENT: Head Other laceration noted to left frontal lobe. Gastrointestinal: No deficits jg9 noted. : No deficits noted. Musculoskeletal: No deficits noted. Assessment: 12:00 Reassessment: No changes from previously documented assessment. Patient and/or family jg9 updated on plan of care and expected duration. Pain level reassessed. Patient is alert, oriented x 3, equal unlabored respirations, skin warm/dry/pink. 13:50 Reassessment: Patient and/or family updated on plan of care and expected duration. Pain jg9 level reassessed. Patient is alert, oriented x 3, equal unlabored respirations, skin warm/dry/pink. patient wound bandaged Patient states feeling better. Patient states symptoms have improved. Vital Signs: 11:03 BP 118 / 100; Pulse 83; Resp 16 S; Temp 98.3(A); Pulse Ox 98% on R/A; Weight 72.57 kg jg9 (R); Height 5 ft. 10 in. (177.80 cm) (R); Pain 5/10; 12:00 BP 118 / 73; Pulse 71; Resp 14 S; Pulse Ox 95% on R/A; Pain 2/10; jg9 13:30 BP 134 / 77; Pulse 64; Resp 17 S; Pulse Ox 95% on R/A; Pain 1/10; jg9 11:03 Body Mass Index 22.96 (72.57 kg, 177.80 cm) jg9 Montez Coma Score: 11:03 Eye Response: spontaneous(4). Verbal Response: oriented(5). Motor Response: obeys jg9 commands(6). Total: 15. Trauma Score (Adult): 11:03 Eye Response: spontaneous(1); Verbal Response: oriented(1); Motor Response: obeys jg9 commands(2); Systolic BP: > 89 mm Hg(4); Respiratory Rate: 10 to 29 per min(4); Montez Score: 15; Trauma Score: 12 ED Course: 10:43 Patient arrived in ED. rg4 10:59 Rolf Danielle MD is Attending Physician. edwin 11:05 Triage completed. iw 11:05 Arm band placed on left wrist. jg9 11:05 Patient has correct armband on for positive identification. Bed in low position. Call jg9 light in reach. Side rails up X 1. 11:05 Patient maintains SpO2 saturation greater than 95% on room air. jg9 11:07 Alecia Loo, RN is Primary Nurse. jg9 11:36 CT Head C Spine In Process Unspecified. EDMS 12:00 Thermoregulation: warm blanket given to patient. jg9 13:52 No provider procedures requiring assistance completed. jg9 14:01 Patient did not have IV access during this emergency room visit. jg9 Administered Medications: 11:07 Drug: Tetanus Toxoid,Adsorbed 0.5 ml {Psychology Technician: [employer]. Exp: 04/02/2024. Lot jg9 #: [id number]. } Route: IM; Site: left deltoid; 11:52 Follow up: Response: No adverse reaction jg9 11:52 CANCELLED (Other Intervention Used): Tylenol 1000 mg PO once jg9 11:52 Drug: Tylenol 1000 mg Route: PO; jg9 12:51 Follow up: Response: No adverse reaction; Pain is decreased jg9 13:09 Drug: Lidocaine (1 %) 5 ml {Note: left frontal lobe laceration.} Volume: 5 ml; Route: jg9 Infiltration; 13:45 Drug: Bactroban (mupirocin) Ointment 2 % 1 application Route: Topical; Site: forehead; jg9 13:50 Drug: KeFLEX (cephalexin) 500 mg Route: PO; jg9 13:51 Follow up: Response: Medication administered at discharge. jg9 Medication: 13:53 Vaccine Information Statement (VIS) provided today. Questions and/or concerns jg9 addressed. VIS edition date: August 09, 2022. Intake: 13:53 n/a jg9 Outcome: 13:43 Discharge ordered by . edwin 13:52 Condition: improved jg9 13:53 required suturesPatient's length of stay extended due to jg9 14:01 Discharged to home via wheelchair, with family. jg9 14:01 Discharge instructions given to patient, Instructed on discharge instructions, follow up and referral plans. Demonstrated understanding of instructions, follow-up care, Prescriptions given X 1. 14:01 Patient left the ED. jg9 Signatures: Dispatcher [employer] Rolf Malloy MD MD cha Williams, Irene, Reena Leger RN, Jennifer, RN RN jg9
--- NOTE | 2022-08-09 13:43 | EDPHYS ---
Physician Documentation [facility] Name: Jason Burch Age: 71 yrs Sex: Male : 1950 Arrival Date: 08/09/2022 Time: 10:43 Bed 4 Private MD: ED Physician Rolf Danielle HPI: 08/09 13:38 This 71 yrs old Male presents to ER via Wheelchair with complaints of Fall edwin Injury. 13:38 Details of fall: The patient fell from an upright position, while walking. Onset: The edwin symptoms/episode began/occurred just prior to arrival. Associated injuries: The patient sustained injury to the head, face. Severity of symptoms: At their worst the symptoms were mild, in the emergency department the symptoms are unchanged. The patient has experienced similar episodes in the past, several times. Historical: - Allergies: 12: No Known Allergies; jg9 - PMHx: 12:01 Hypertensive disorder; small cell lung cancer; jg9 - Immunization history: Last tetanus immunization: unknown. - Social history:: Smoking status: Patient/guardian denies using tobacco, the patient reports quitting approximately 11 years ago. - Family history:: not pertinent. ROS: 13:38 Constitutional: Negative for fever, chills, and weight loss, Eyes: Negative for injury, edwin pain, redness, and discharge, Neck: Negative for injury, pain, and swelling, Cardiovascular: Negative for chest pain, palpitations, and edema, Respiratory: Negative for shortness of breath, cough, wheezing, and pleuritic chest pain, Abdomen/GI: Negative for abdominal pain, nausea, vomiting, diarrhea, and constipation, Back: Negative for injury and pain, : Negative for injury, bleeding, discharge, and swelling, MS/Extremity: Negative for injury and deformity, Skin: Negative for injury, rash, and discoloration, Neuro: Negative for headache, weakness, numbness, tingling, and seizure, Psych: Negative for depression, anxiety, suicide ideation, homicidal ideation, and hallucinations, Allergy/Immunology: Negative for hives, rash, and allergies, Endocrine: Negative for neck swelling, polydipsia, polyuria, polyphagia, and marked weight changes, Hematologic/Lymphatic: Negative for swollen nodes, abnormal bleeding, and unusual bruising. 13:38 ENT: Positive for injury or acute deformity, abrasion, contusion, laceration. Exam: 13:38 Constitutional: This is a well developed, well nourished patient who is awake, alert, edwin and in no acute distress. Eyes: Pupils equal round and reactive to light, extra-ocular motions intact. Lids and lashes normal. Conjunctiva and sclera are non-icteric and not injected. Cornea within normal limits. Periorbital areas with no swelling, redness, or edema. ENT: Nares patent. No nasal discharge, no septal abnormalities noted. Tympanic membranes are normal and external auditory canals are clear. Oropharynx with no redness, swelling, or masses, exudates, or evidence of obstruction, uvula midline. Mucous membranes moist. Neck: Trachea midline, no thyromegaly or masses palpated, and no cervical lymphadenopathy. Supple, full range of motion without nuchal rigidity, or vertebral point tenderness. No Meningismus. Chest/axilla: Normal chest wall appearance and motion. Nontender with no deformity. No lesions are appreciated. Cardiovascular: Regular rate and rhythm with a normal S1 and S2. No gallops, murmurs, or rubs. Normal PMI, no JVD. No pulse deficits. Respiratory: Lungs have equal breath sounds bilaterally, clear to auscultation and percussion. No rales, rhonchi or wheezes noted. No increased work of breathing, no retractions or nasal flaring. Abdomen/GI: Soft, non-tender, with normal bowel sounds. No distension or tympany. No guarding or rebound. No evidence of tenderness throughout. Back: No spinal tenderness. No costovertebral tenderness. Full range of motion. Male : Normal genitalia with no discharge or lesions. Skin: Warm, dry with normal turgor. Normal color with no rashes, no lesions, and no evidence of cellulitis. MS/ Extremity: Pulses equal, no cyanosis. Neurovascular intact. Full, normal range of motion. Neuro: Awake and alert, GCS 15, oriented to person, place, time, and situation. Cranial nerves II-XII grossly intact. Motor strength 5/5 in all extremities. Sensory grossly intact. Cerebellar exam normal. Normal gait. Psych: Awake, alert, with orientation to person, place and time. Behavior, mood, and affect are within normal limits. 13:38 Head/face: Noted is abrasion(s), contusion, a laceration(s), swelling, that is moderate, of the left cheek and left eye. Vital Signs: 11:03 BP 118 / 100; Pulse 83; Resp 16 S; Temp 98.3(A); Pulse Ox 98% on R/A; Weight 72.57 kg g9 (R); Height 5 ft. 10 in. (177.80 cm) (R); Pain 5/10; 12:00 BP 118 / 73; Pulse 71; Resp 14 S; Pulse Ox 95% on R/A; Pain 2/10; jg9 13:30 BP 134 / 77; Pulse 64; Resp 17 S; Pulse Ox 95% on R/A; Pain 1/10; jg9 11:03 Body Mass Index 22.96 (72.57 kg, 177.80 cm) 9 Fleischmanns Coma Score: 11:03 Eye Response: spontaneous(4). Verbal Response: oriented(5). Motor Response: obeys jg9 commands(6). Total: 15. Trauma Score (Adult): 11:03 Eye Response: spontaneous(1); Verbal Response: oriented(1); Motor Response: obeys jg9 commands(2); Systolic BP: > 89 mm Hg(4); Respiratory Rate: 10 to 29 per min(4); Montez Score: 15; Trauma Score: 12 Laceration: 13:40 Wound Repair of 5cm ( 2.0in ) subcutaneous laceration to face and left eye and left edwin cheek. Irregularly shaped.. Skin/tissue flap noted.. Distal neuro/vascular/tendon intact. Anesthesia: Local anesthetic administered with 6 mls of 1% lidocaine. Wound prep: Simple cleansing with betadine by wy. Skin closed with 8 5-0 Prolene using interrupted sutures and sterile technique. Dressed with Neosporin, pressure dressing, non-adherent dressing. Patient tolerated well. MDM: 10:59 Patient medically screened. [facility] 13:40 Data reviewed: vital signs, nurses notes. [facility] 08/09 11:04 Order name: CT Head C Spine; Complete Time: 13:00 [facility] 08/09 11:04 Order name: Dressing - Wound; Complete Time: 13:50 [facility] 08/09 11:04 Order name: Gloves, Sterile; Complete Time: 11:07 [facility] 08/09 11:04 Order name: Setup Suture Tray; Complete Time: 11:07 edwin 08/09 11:04 Order name: Wound Care; Complete Time: 13:50 edwin Administered Medications: 11:07 Drug: Tetanus Toxoid,Adsorbed 0.5 ml {Bow Rehairer: Reunify. Exp: 04/02/2024. Lot jg9 #: [id number]. } Route: IM; Site: left deltoid; 11:52 Follow up: Response: No adverse reaction jg9 11:52 CANCELLED (Other Intervention Used): Tylenol 1000 mg PO once jg9 11:52 Drug: Tylenol 1000 mg Route: PO; jg9 12:51 Follow up: Response: No adverse reaction; Pain is decreased jg9 13:09 Drug: Lidocaine (1 %) 5 ml {Note: left frontal lobe laceration.} Volume: 5 ml; Route: jg9 Infiltration; 13:45 Drug: Bactroban (mupirocin) Ointment 2 % 1 application Route: Topical; Site: forehead; jg9 13:50 Drug: KeFLEX (cephalexin) 500 mg Route: PO; jg9 13:51 Follow up: Response: Medication administered at discharge. jg9 Disposition Summary: 08/09/22 13:43 Discharge Ordered Location: Home edwin Problem: new edwin Symptoms: have improved edwin Condition: Stable edwin Diagnosis - Fall on same level, unspecified edwni - Laceration without foreign body of other part of head - left brow, left cheek edwin Followup: edwin - With: Private Physician - When: 1 week - Reason: Recheck today's complaints, Continuance of care, Re-evaluation by your physician Discharge Instructions: - Discharge Summary Sheet edwin - Fall Prevention in the Home, Adult edwin - Laceration Care, Adult edwin - Facial Laceration edwin - Laceration Care, Adult, [id number] edwin - Fall Prevention in the Home, Adult, [id number] edwin Forms: - Medication Reconciliation Form edwin - Thank You Letter edwin - Antibiotic Education edwin - Prescription Opioid Use edwin Prescriptions: - Cephalexin 500 mg Oral Capsule - take 1 capsule by ORAL route every 6 hours for 7 days; 28 capsule; Refills: 0, edwin Product Selection Permitted Signatures: Dispatcher [employer] EDRolf Mancini MD MD cha Gilmore, Jennifer, RN RN jg9 Corrections: (The following items were deleted from the chart) 11:52 11:52 Tylenol 1000 mg PO once ordered. jg9 jg9
[2022-08-09] MEDS ORDERED: CEPHALEXIN 250 MG CAP ONE (13:55)
[2022-08-09 14:36] VITALS: TEMP 98.3
[2022-08-09 14:38] VITALS: O2SAT 95
[2022-08-09 14:41] VITALS: BP 134/77
== END 2022-08-09 14:01 | disposition home or self-care (01) ==
LOC: ER 10:38
PROC: 0JQ10ZZ Repair Face Subcutaneous Tissue and Fascia, Open Approach (ICD-10-PCS; principal; 2022-08-09)
DX: S01.81XA Laceration without foreign body of other part of head, initial encounter (principal); W18.30XA Fall on same level, unspecified, initial encounter; Z23 Encounter for immunization; I10 Essential (primary) hypertension
CPT/HCPCS: 70450; 72125; 90471; 90714; 99284; 12013; J2001 ×2